=== PATIENT | female | born 1950 | race Caucasian/White ===

== ENCOUNTER 2022-10-05 13:50 | Outpatient (CLI) | payer MEDICARE ==
[~2022-10-05 13:50] MED LIST: ESTR0.5T PO; PROG100C28 PO; PROP10TA10 PO
== END 2022-10-05 23:59 | disposition home or self-care (01) ==
LOC: RAD 13:50
PROVIDERS: ATTEND Internal Medicine Cardiovascular Disease
DX: I08.3 Combined rheumatic disorders of mitral, aortic and tricuspid valves (principal); R06.02 Shortness of breath
CPT/HCPCS: 93306